=== PATIENT | female | born 1950 | race African-American/Black ===

== ENCOUNTER 2016-05-15 10:21 | Outpatient (CLI) | payer MEDICARE ==
[2016-05-15 10:40] LABS: Basophils % (Auto) 0.5 % (0.0-1.8); Eosinophils % (Auto) 4.2 % (0.0-4.3); Hemoglobin 9.3 gm/dl (10.1-14.3); Mean Corpuscular HGB Conc 32 % (30-34); Mean Corpuscular Hemoglobin 28 pg (28-32); Mean Corpuscular Volume 87 fl (79-97); Platelet Count 193 K/mm3 (140-440); Red Blood Count 3.35 M/mm3 (3.65-5.03); Red Cell Distribution Width 17.1 % (13.2-15.2); White Blood Count 6.8 K/mm3 (4.5-11.0)
[2016-05-15 11:20] LABS: Albumin 3.9 g/dL (3.9-5); BUN/Creatinine Ratio 14.87; Calcium 8.5 mg/dL (8.4-10.2); Phosphorous 4.4 mg/dL (2.5-4.5)
[2016-05-15 14:43] LABS: Potassium 6.2 mmol/L (3.6-5.0)
== END 2016-05-15 10:22 | disposition home or self-care (01) ==
LOC: LAB 10:21
PROVIDERS: ATTEND Internal Medicine Nephrology
DX: I12.9 Hypertensive chronic kidney disease with stage 1 through stage 4 chronic kidney disease, or unspecified chronic kidney disease (principal); N18.9 Chronic kidney disease, unspecified; E11.22 Type 2 diabetes mellitus with diabetic chronic kidney disease; J44.9 Chronic obstructive pulmonary disease, unspecified; R94.4 Abnormal results of kidney function studies; I67.89 Other cerebrovascular disease; I25.10 Atherosclerotic heart disease of native coronary artery without angina pectoris; D64.9 Anemia, unspecified
CPT/HCPCS: 36415; 80048; 82040; 82607; 82728; 83550; 83970; 84100; 85025

== ENCOUNTER 2016-05-15 17:15 | Emergency (ER) | payer MEDICARE ==
[2016-05-15 18:04] VITALS: BP 170/61
[2016-05-15 19:13] LABS: Eosinophils % (Auto) 4.4 % (0.0-4.3); Mean Corpuscular HGB Conc 31 % (30-34); Mean Corpuscular Hemoglobin 27 pg (28-32); Mean Corpuscular Volume 87 fl (79-97); Red Blood Count 3.68 M/mm3 (3.65-5.03)
[2016-05-15 19:31] LABS: BUN/Creatinine Ratio 16.57; Calcium 8.7 mg/dL (8.4-10.2); Chloride 106.8 mmol/L (98-107)
[2016-05-15 19:38] LABS: Potassium 6.6 mmol/L (3.6-5.0)
[2016-05-15 19:41] LABS: Platelet Count 197 K/mm3 (140-440)
--- NOTE | 2016-05-16 07:23 | ED Elopement Review ---
ED Pt Elopement review - Results review Lab results: Laboratory Tests 05/15/16 05/15/16 18:52 18:52 WBC 8.0 RBC 3.68 Hgb 10.0 L Hct 32.0 MCV 87 MCH 27 L MCHC 31 RDW 17.0 H Plt Count 197 Lymph % (Auto) 22.5 [place] % (Auto) 6.2 Eos % (Auto) 4.4 H Baso % (Auto) 1.0 Lymph # 1.8 [place] # 0.5 Eos # 0.4 Baso # 0.1 Seg Neutrophils % 65.9 Seg Neutrophils # 5.3 Sodium 136 L Potassium 6.6 H* Chloride 106.8 Carbon Dioxide 13 L Anion Gap 23 BUN 58 H Creatinine 3.5 H Estimated GFR 13 BUN/Creatinine Ratio 16.57 Glucose 132 H Calcium 8.7 - Call Back decision Pt Call Back Decision: Call pt to return to ED JAMIN (potassium of 6.6, patient to be called back immediately)
== END 2016-05-15 20:05 | disposition left against medical advice (07) ==
LOC: ED 17:15
DX: E87.5 Hyperkalemia (principal); Z53.21 Procedure and treatment not carried out due to patient leaving prior to being seen by health care provider
CPT/HCPCS: 36415; 80048; 85025; 93005; 93010

== ENCOUNTER 2016-05-16 10:26 | Inpatient (IN) | payer MEDICARE ==
--- NOTE | 2016-05-16 11:26 | Emergency Department Report ---
HPI - General Chief Complaint: Recheck/Abnormal Lab/Rx Time Seen by Provider: 05/16/16 10:56 - HPI HPI: This is a 65-year-old female who presents to the emergency department after she was called to come back due to abnormal labs found yesterday. The patient was here yesterday as she was told come in for evaluation of her potassium and renal function by her parquetry layer. The patient was here 2 different times but he eloped secondary to the long wait and time it took to get back to the emergency department. However the patient had blood drawn each time that resulted with a potassium of 6.2 and a level of 6.6 respectively. I had seen the patient's labs as part of a elopement review protocol and asked for the patient come back immediately for treatment and admission. She does not currently have any chest pain, shortness of breath, nausea, vomiting or fever. She does have some history of renal insufficiency but is not dialysis dependent. She also has a history of CVA without any significant deficits, insulin-dependent diabetes, hypertension and coronary artery disease with previous triple bypass. Her primary care doctor's Dr. Barrios. ED Past Medical Hx - Past Medical History Hx Hypertension: Yes Hx CVA: Yes Hx Diabetes: Yes Hx Renal Disease: Yes Additional medical history: CAD - Surgical History Hx Open Heart Surgery: Yes (TRIPLE BYPASS) - Social History Smoking Status: Never Smoker Substance Use Type: None - Medications Home Medications: Home Medications Medication Instructions Recorded Confirmed Last Taken Type Amlodipine Besylate [Norvasc] 10 mg PO BID 03/10/16 03/10/16 Unknown History AtorvaSTATin [Lipitor] 20 mg PO QDAY 03/10/16 03/10/16 Unknown History Carvedilol [Coreg] 12.5 mg PO BID 03/10/16 03/10/16 Unknown History ISOSORBIDE MONOnitrate [Imdur ER] 30 mg PO DAILY 03/10/16 03/10/16 Unknown History Insulin Glargine [Lantus VIAL] 50 units SQ QHS 03/10/16 03/10/16 Unknown History Insulin Regular, Human [HumuLIN R] 15 unit SQ ACHS 03/10/16 03/10/16 Unknown History Lisinopril [Zestril TAB] 40 mg PO BID 03/10/16 03/10/16 Unknown History clonazePAM [KlonoPIN] 2 mg PO QAM PRN 03/10/16 03/10/16 Unknown History clonazePAM [KlonoPIN] 4 mg PO QHS 03/10/16 03/10/16 Unknown History traZODone [Desyrel] 100 mg PO QHS 03/10/16 03/10/16 Unknown History Levofloxacin [Levaquin] 750 mg PO QDAY #7 tablet 03/16/16 Unknown Rx ED Review of Systems ROS: Stated complaint: RETURN TO ER PER CHARGE NURSE Other details as noted in HPI Comment: All other systems reviewed and negative Constitutional: denies: chills, fever Eyes: denies: eye pain, eye discharge, vision change ENT: denies: ear pain, throat pain Respiratory: denies: cough, shortness of breath, wheezing Cardiovascular: denies: chest pain, palpitations Gastrointestinal: denies: abdominal pain, nausea, diarrhea Genitourinary: denies: urgency, dysuria, discharge Musculoskeletal: denies: back pain, joint swelling, arthralgia Skin: denies: rash, lesions Neurological: denies: headache, weakness, paresthesias Physical Exam - Physical Exam Vital Signs: Vital Signs 05/16/16 10:41 Temperature 97.8 F Pulse Rate 60 Respiratory 19 Rate Blood Pressure 139/57 O2 Sat by Pulse 98 Oximetry Physical Exam: GENERAL: The patient is well-developed well-nourished. HEENT: Normocephalic. Atraumatic. Extraocular motions are intact. Patient has moist mucous membranes. Pupils equal reactive to light bilaterally. NECK: Supple. Trachea is midline. CHEST/LUNGS: Clear to auscultation. There is no respiratory distress noted. HEART/CARDIOVASCULAR: Regular. There is no tachycardia. There is no gallop rub or murmur. ABDOMEN: Abdomen is soft, nontender. Patient has normal bowel sounds. There is no abdominal distention. SKIN: There is no rash. There is no edema. There is no diaphoresis. NEURO: The patient is awake, alert, and oriented. The patient is cooperative. The patient has no focal neurologic deficits. The patient has normal speech. MUSCULOSKELETAL: There is no tenderness or deformity. There is no limitation range of motion. There is no evidence of acute injury. ED Course Vital Signs 05/16/16 10:41 Temperature 97.8 F Pulse Rate 60 Respiratory 19 Rate Blood Pressure 139/57 O2 Sat by Pulse 98 Oximetry - Consultations Consultation #1: I spoke with the nurse practitioner for the nephrology service of Dr. Harley. They agree with the plan for the hyperkalemia cocktail. Due to the patient's decreased bicarbonate level of 12, they will place orders for some bicarbonate administration and plan to see the patient later in the day. 05/16/16 13:06 ED Medical Decision Making - Lab Data Result diagrams: 05/16/16 11:17 05/16/16 11:17 - EKG Data -: EKG Interpreted by Me EKG shows normal: sinus rhythm, axis, intervals (prolonged VA interval indicating first-degree AV block), QRS complexes (LDH), ST-T waves (nonspecific ST-T changes) Rate: normal - EKG Data When compared to previous EKG there are: previous EKG unavailable Interpretation: other (sinus rhythm with first-degree AV block, LVH, nonspecific ST-T changes) - Medical Decision Making 65-year-old female presents to the emergency department after being called back and due to some previous labs being elevated with hyperkalemia and renal failure on elopements. Today the labs were rechecked and the potassium is up to 6.7. Patient was given the hyperkalemia cocktail. The nephrology service was contacted and admitted sodium bicarbonate and will see the patient later for consultation. Patient is been accepted for admission by the hospitalist and the patient's primary care doctor, Dr. Barrios. Critical Care Time: No Critical care attestation.: If time is entered above; I have spent that time in minutes in the direct care of this critically ill patient, excluding procedure time. ED Disposition Clinical Impression: Renal failure, Hyperkalemia, Hyperglycemia Disposition: OP ADMITTED IP TO THIS HOSP Is pt being admited?: Yes Condition: Stable Time of Disposition: 13:27
[2016-05-16 11:31] LABS: Basophils % (Auto) 0.5 % (0.0-1.8); Eosinophils % (Auto) 3.4 % (0.0-4.3); Hematocrit 28.5 % (30.3-42.9); Mean Corpuscular HGB Conc 32 % (30-34); Mean Corpuscular Hemoglobin 27 pg (28-32); Mean Corpuscular Volume 87 fl (79-97); Platelet Count 170 K/mm3 (140-440); Red Blood Count 3.29 M/mm3 (3.65-5.03); Red Cell Distribution Width 16.8 % (13.2-15.2); White Blood Count 6.8 K/mm3 (4.5-11.0)
[2016-05-16 11:46] LABS: BUN/Creatinine Ratio 15.4; Calcium 8.2 mg/dL (8.4-10.2); Chloride 106.2 mmol/L (98-107)
[2016-05-16 11:48] LABS: Potassium 6.7 mmol/L (3.6-5.0)
[2016-05-16] MEDS ORDERED: PROVENTIL IH ONE (11:50)
[2016-05-16] MEDS ORDERED: KIONEX PO ONE (11:50)
[2016-05-16] MEDS ORDERED: CALCIUM CHLORIDE 1,000 MG in NACL 0.9% 100 ML IV ONE (11:50)
[2016-05-16] MEDS ORDERED: D50W (25GM) IV ONE (11:50)
--- NOTE | 2016-05-16 11:57 | Admit Criteria Form ---
Admission Criteria Documentation: HYPONATREMIA; HYPERNATREMIA; HYPOKALEMIA; HYPERKALEMIA; HYPOCALCEMIA; HYPERCALCEMIA Clinical Indications for Inpatient Care (Place 'X' for any and all applicable criteria): Ongoing inpatient care may be indicated for ANY ONE of the following [G](1)(2)(3 )(5): [X]I. Hyponatremia with ANY ONE of the following: [ ]a) Sodium less than 130 mEq/L (mmol/L) (new) (6)(22) [X]b) Sodium less than 135 mEq/L (mmol/L) with ANY ONE of the following: [ ]i) Severe medical etiology requiring inpatient management (eg, heart failure, hypovolemia) [ ]ii) Altered mental status [ ]iii) Seizures [ ]II. Hypernatremia with ANY ONE of the following: [ ]a) Sodium greater than 155 mEq/L (mmol/L) [ ]b) Sodium greater than 150 mEq/L (mmol/L) with ANY ONE of the following: [ ] i) Altered mental status [ ]ii) Seizures [ ]iii) Severe medical etiology (eg, hypovolemia, diabetes insipidus) [ ]iv) Severe weakness [ ]v) Severe medical etiology (eg, hemolysis, infection, drug overdose) [ ]III. Hypokalemia with ANY ONE of the following: [ ]a) Potassium less than 2.5 mEq/L (mmol/L) despite outpatient and emergency treatment [ ]b) Potassium less than 3.0 mEq/L (mmol/L) with ANY ONE of the following: [ ]i) Weakness [ ]ii) Cardiac abnormality (eg, arrhythmia, conduction disturbance) [ ]iii) Cardiac ischemia [ ]iv) Ileus [ ]v) Ongoing medical cause requiring inpatient management. ( e.g., acute renal wasting, SIADH) [ ]vi) Other severe symptoms [X] IV. Hyperkalemia with ANY ONE of the following: [X]a) Potassium greater than 6.5 mEq/L (mmol/L) [X]b) Potassium greater than 5 mEq/L (mmol/L) with ANY ONE of the following: [ ]i) Severe ECG findings [H] [X]ii) Acute worsening of renal failure (creatinine greater than 2.5 mg/dL (221 micromoles/L) or significant elevation for age and size) [ ] V. Hypocalcemia with ANY ONE of the following: [ ]a) Calcium less than 7 mg/dL (1.75 mmol/L) despite outpatient and emergency treatment(19) [ ]b) Calcium less than 8 mg/dL (2 mmol/L) with significant symptoms or findings; examples include: [ ]i) Cardiac abnormality (eg, arrhythmia or conduction disturbance) [ ]ii) Altered mental status [ ]iii) Seizures [ ]iv) Breathing difficulty [ ]v) Muscle spasms [ ]. Hypercalcemia with ANY ONE of the following: [ ]a) Calcium greater than 14 mg/dL (3.5 mmol/L) [ ]b) Calcium greater than 12 mg/dL (3 mmol/L) with ANY ONE of the following: [ ]i) Significant dehydration or hypovolemia as indicated by ANY ONE of the following(2): [ ]1. Clinically significant dehydration as indicated by ANY ONE of the following: [ ]A. Acute loss of weight from baseline (5% of body weight in adults, 9% in pediatric patients) [ ]B. Hemodynamic instability [ ]C. Acute renal failure [ ]D. Serum sodium greater than 150 mEq/L (mmol/L) [ ]2) Dehydration that is persistent indicated by ALL of the following: [ ]A. Oral rehydration therapy not tolerated or insufficient to adequately correct dehydration [ ]B. Appropriate intravenous treatment (eg, fluids ) does not readily correct dehydration ie, after 12 to 24 hours of treatment) [ ]ii) Significant symptoms or findings; examples include: [ ]1) Altered mental status [ ]2) Cardiac abnormality (eg, arrhythmia, conduction disturbance) [ ]3) Cardiac abnormality (eg, arrhythmia, conduction disturbance) The original [facility] content created by [employer] has been revised. The portions of the content which have been revised are identified through the use of italic text or in bold, and [facility] has neither reviewed nor approved the modified material. All other unmodified content is copyright [facility] Please see references footnoted in the original [facility] edition 2016 Admission Criteria Met: Yes
[2016-05-16] MEDS ORDERED: SODIUM BICARBONATE IV ONE ×3 (13:04→14:00)
[2016-05-16] MEDS ORDERED: SODIUM BICARBONATE 150 MEQ in D5W 1,000 ML IV ONE (14:00)
[2016-05-16] MEDS ORDERED: HEPARIN ONE (15:36)
[2016-05-16] MEDS: HEPARIN SUB-Q SCH ×2 (15:45→21:44)
[2016-05-16] MEDS ORDERED: ZOFRAN ONE (15:45)
[2016-05-16] MEDS: ZOFRAN IV PRN (16:05)
--- NOTE | 2016-05-16 18:07 | Consultation ---
History of Present Illness - Reason for Consult Consult date: 05/16/16 - History of Present Illness Pt was seen and examined in ER.Discussed with pt's sons-translators for pt. No dialysis per discussion, only medical treatment, no artifical life support or life prolonging treatments. Consult dictated Medications and Allergies Allergies Allergy/AdvReac Type Severity Reaction Status Date / Time acetaminophen [From Tylenol] Allergy Vomiting Verified 05/15/16 18:00 Home Medications Medication Instructions Recorded Confirmed Last Taken Type Amlodipine Besylate [Norvasc] 10 mg PO BID 03/10/16 03/10/16 Unknown History AtorvaSTATin [Lipitor] 20 mg PO QDAY 03/10/16 03/10/16 Unknown History Carvedilol [Coreg] 12.5 mg PO BID 03/10/16 03/10/16 Unknown History ISOSORBIDE MONOnitrate [Imdur ER] 30 mg PO DAILY 03/10/16 03/10/16 Unknown History Insulin Glargine [Lantus VIAL] 50 units SQ QHS 03/10/16 03/10/16 Unknown History Insulin Regular, Human [HumuLIN R] 15 unit SQ ACHS 03/10/16 03/10/16 Unknown History Lisinopril [Zestril TAB] 40 mg PO BID 03/10/16 03/10/16 Unknown History clonazePAM [KlonoPIN] 2 mg PO QAM PRN 03/10/16 03/10/16 Unknown History clonazePAM [KlonoPIN] 4 mg PO QHS 03/10/16 03/10/16 Unknown History traZODone [Desyrel] 100 mg PO QHS 03/10/16 03/10/16 Unknown History Levofloxacin [Levaquin] 750 mg PO QDAY #7 tablet 03/16/16 Unknown Rx Active Meds: Active Medications Heparin Sodium (Porcine) (Heparin) 5,000 unit SUB-Q Q8HR BASSEM Last Admin: 05/16/16 15:45 Dose: 5,000 unit Sodium Bicarbonate 150 meq/ (Dextrose) 1,150 mls @ 100 mls/hr IV ONCE.ED ONE Stop: 05/17/16 01:29 Last Admin: 05/16/16 16:07 Dose: 100 mls/hr Ondansetron HCl (Zofran) 4 mg IV Q3H PRN PRN Reason: Nausea Last Admin: 05/16/16 16:05 Dose: 4 mg Exam - Constitutional Vitals: Temp Pulse Resp BP Pulse Ox 97.8 F 65 10 L 156/58 93 05/16/16 10:41 05/16/16 14:00 05/16/16 16:09 05/16/16 16:09 05/16/16 16:09 Results - Labs CBC & Chem 7: 05/16/16 11:17 05/16/16 11:17
[2016-05-16 21:51] LABS: BUN/Creatinine Ratio 14.28; Calcium 8.7 mg/dL (8.4-10.2); Chloride 106.5 mmol/L (98-107); Potassium 5.3 mmol/L (3.6-5.0)
--- NOTE | 2016-05-16 23:06 | History and Physical Report ---
History of Present Illness Date of examination: 05/16/16 Date of admission: 05/16/16 13:27 Chief complaint: hyperkalemia History of present illness: Full H and P dictated. Pt see note in report section Past History Past Medical History: diabetes, hypertension, stroke Past Surgical History: CABG Social history: denies: smoking, alcohol abuse, prescription drug abuse Family history: denies: stroke Medications and Allergies Allergies Allergy/AdvReac Type Severity Reaction Status Date / Time acetaminophen [From Tylenol] Allergy Vomiting Verified 05/15/16 18:00 Home Medications Medication Instructions Recorded Confirmed Last Taken Type Amlodipine Besylate [Norvasc] 10 mg PO BID 03/10/16 03/10/16 Unknown History AtorvaSTATin [Lipitor] 20 mg PO QDAY 03/10/16 03/10/16 Unknown History Carvedilol [Coreg] 12.5 mg PO BID 03/10/16 03/10/16 Unknown History ISOSORBIDE MONOnitrate [Imdur ER] 30 mg PO DAILY 03/10/16 03/10/16 Unknown History Insulin Glargine [Lantus VIAL] 50 units SQ QHS 03/10/16 03/10/16 Unknown History Insulin Regular, Human [HumuLIN R] 15 unit SQ ACHS 03/10/16 03/10/16 Unknown History Lisinopril [Zestril TAB] 40 mg PO BID 03/10/16 03/10/16 Unknown History clonazePAM [KlonoPIN] 2 mg PO QAM PRN 03/10/16 03/10/16 Unknown History clonazePAM [KlonoPIN] 4 mg PO QHS 03/10/16 03/10/16 Unknown History traZODone [Desyrel] 100 mg PO QHS 03/10/16 03/10/16 Unknown History Levofloxacin [Levaquin] 750 mg PO QDAY #7 tablet 03/16/16 Unknown Rx Active Meds: Active Medications Heparin Sodium (Porcine) (Heparin) 5,000 unit SUB-Q Q8HR BASSEM Last Admin: 05/16/16 21:44 Dose: 5,000 unit Sodium Bicarbonate 150 meq/ (Dextrose) 1,150 mls @ 100 mls/hr IV ONCE.ED ONE Stop: 05/17/16 01:29 Last Admin: 05/16/16 16:07 Dose: 100 mls/hr Ondansetron HCl (Zofran) 4 mg IV Q3H PRN PRN Reason: Nausea Last Admin: 05/16/16 16:05 Dose: 4 mg Exam - Constitutional Vitals: Temp Pulse Resp BP Pulse Ox 98.3 F 88 18 185/79 98 05/16/16 21:15 05/16/16 21:15 05/16/16 21:15 05/16/16 21:15 05/16/16 21:15 General appearance: Present: no acute distress, well-nourished - EENT Eyes: Present: PERRL ENT: hearing intact, clear oral mucosa - Neck Neck: Present: supple, normal ROM - Respiratory Respiratory effort: normal Respiratory: bilateral: CTA - Cardiovascular Heart Sounds: Present: S1 & S2. Absent: rub, click - Extremities Extremities: pulses symmetrical, No edema Peripheral Pulses: within normal limits - Abdominal General gastrointestinal: Present: soft, non-tender, non-distended, normal bowel sounds - Integumentary Integumentary: Present: clear, warm, dry - Musculoskeletal Musculoskeletal: gait normal, strength equal bilaterally - Psychiatric Psychiatric: appropriate mood/affect, intact judgment & insight - Neurologic Neurologic: CNII-XII intact, other (left hemiparesis) Results - Labs CBC & Chem 7: 05/16/16 11:17 05/16/16 20:37 Labs: Abnormal lab results 05/16/16 05/16/16 Range/Units 20:37 20:44 Potassium 5.3 H D (3.6-5.0) mmol/L Carbon Dioxide 18 L (22-30) mmol/L BUN 50 H (7-17) mg/dL Creatinine 3.5 H (0.7-1.2) mg/dL Glucose 188 H (65-100) mg/dL POC Glucose 223 H (70-105) Assessment and Plan Assessment and plan: 1. Hyperkalemia: D50 with iv insulin and Ca gluconate 2. T2DM: SSI, B renaldo insulin and Consistent CHO diet 3. CKD: Stage 4. Contl BP an avoid nephrotoxic drugNephrology following 4. Anemia of Chronic disease: Michael h/h 5. Diabetic nephropathy: optimize mitigating risk factors
[2016-05-16] MEDS ORDERED: DESYREL PO SCH (23:22)
[2016-05-16] MEDS: LEVEMIR SUB-Q SCH (23:43)
[2016-05-16] MEDS: RESTORIL PO SCH (23:45)
[2016-05-16] MEDS: DESYREL PO SCH (23:53)
--- NOTE | 2016-05-17 01:51 | Consultation ---
REASON FOR CONSULTATION: Renal failure, hyperkalemia, metabolic acidosis. HISTORY OF PRESENT ILLNESS: This 65-year-old [place] female with history of diabetes, hypertension, CVA, coronary artery disease, status post CABG was brought to the Emergency Room for having abnormal labs done yesterday for office followup. The patient is followed by Dr. Jaime, principal database developer for chronic kidney disease. In the ER, the patient's labs revealed BUN of 57, creatinine of 3.7, potassium of 6.7, CO2 of 12, glucose 385, sodium 133. Hemoglobin 9.0. The patient received medical treatment for hyperkalemia in the emergency room and she was placed on bicarbonate drip. The patient does not speak Cambodian. The patient's both sons are at bedside, who are translated for the patient. In 2007, the patient had triple bypass surgery. At that time, she had a stroke and second stroke in 2008. History of diabetes since 2001. The patient has left side weakness from the stroke, has not been ambulatory. For the past few days, she was not eating or drinking well and not urinating much. The patient also is reported to be restless and sometimes talks out of her head and asks her to drive her around at night time. She cannot stay still. PAST MEDICAL HISTORY: As mentioned above, status post open heart surgery with triple bypass in 2007, history of stroke twice in 2007 and 2008, type 2 diabetes, hypertension, chronic kidney disease. PERSONAL HISTORY: No history of smoking, alcohol, or drug abuse. FAMILY HISTORY: No family history of kidney failure. ALLERGIES: Acetaminophen. HOME MEDICATIONS: Amlodipine 10 mg twice a day, atorvastatin 20 mg a day, carvedilol 12.5 mg twice a day, isosorbide 30 mg once a day, insulin, lisinopril 40 mg, trazodone 100 mg once a day, clonidine 4 mg once a day. REVIEW OF SYSTEMS: The patient does not speak Cambodian, family members are the translators. The patient denies chest pain or shortness of breath, nausea or vomiting at present time. Denies fever or chills. Denies cold, cough, or sore throat. Denies abdomen pain. Urine output is not much. Denies swelling of the legs. The patient has been restless and cannot stay still. Other review of systems reviewed and negative. PHYSICAL EXAMINATION: GENERAL: The patient is alert, oriented to place and person, not in acute distress. VITAL SIGNS: Blood pressure 159/60, pulse 80, afebrile. HEENT: Head is normocephalic. Eyes: Pupils reactive. Conjunctivae pale. Oral mucosa: Tongue and lips are dry. NECK: No JVD. No thyroid enlargement. No cervical lymph nodes palpable. LUNGS: Clear. HEART: S1, S2 regular. No pericardial rub. ABDOMEN: Soft, bowel sounds present, nontender. No masses palpable. EXTREMITIES: No significant edema. LABORATORY DATA: Sodium 133, potassium 6.7, chloride 106, CO2 12, BUN 57, creatinine 3.7, glucose 385, calcium 8.2. WBC 6.8, hemoglobin 9.0, hematocrit 28.5, platelets 170. ASSESSMENT AND PLAN: 1. Hyperkalemia. 2. Metabolic acidosis. 3. Diabetes with hyperglycemia. 4. Acute on chronic kidney disease. 5. Anemia in chronic kidney disease. 6. Coronary artery disease, status post coronary artery bypass graft. 7. History of cerebrovascular accident. 8. Restless legs syndrome. Check on urine electrolytes and follow up on the electrolytes. The patient is noted to have hyperglycemia, check ketones, and the patient may have possible diabetic ketoacidosis. Medical treatment for hyperkalemia is ordered. Discussed in detail with the patient and the patient's family, both sons who speak good Cambodian, about the treatment plan. Family does not want to pursue dialysis and they request not to do artificial life support or life prolonging measures. Family was provided with a DNR forms. Check renal ultrasound to rule out urinary retention. Check urine electrolytes. Hyperglycemia treatment per her primary care doctor, Dr. Barrios. Stop CHRISTOPHER inhibitors. Thank you for the consultation. JOB# [id number] K/NTS
[2016-05-17] MEDS: HEPARIN SUB-Q SCH ×3 (05:15→21:34)
--- NOTE | 2016-05-17 06:42 | History and Physical Report ---
CHIEF COMPLAINT: Hyperkalemia. HISTORY OF PRESENT ILLNESS: The patient is a 65-year-old lady who has a history of hypertension, cerebrovascular accident, diabetes mellitus, coronary artery disease, status post triple bypass, sees her synthetic filament spinner, Dr. Jaime on a regular basis. She was due for another visit to the synthetic filament spinner because of her chronic kidney disease and she was advised by the synthetic filament spinner to obtain a chemistry lab studies. The lab report showed a potassium level of 6.7. The patient was therefore advised by the synthetic filament spinner to go to the Emergency Department for admission. I was called as the primary care physician of the patient who has been taking care of this patient in my office. Blood sugar was found to be elevated at 382. The patient denies any fever. No chest pain, no palpitations, no orthopnea, or paroxysmal nocturnal dyspnea. Denies any syncope. PAST MEDICAL HISTORY: Remarkable for hypertension, cerebrovascular accident, diabetes mellitus, diabetic nephropathy, and coronary artery disease, status post bypass. PAST SURGICAL HISTORY: Triple bypass. SOCIAL HISTORY: Denies any tobacco use. No alcohol use. Lives with her who is her primary caregiver. FAMILY HISTORY: Unremarkable for any chronic kidney disease. REVIEW OF SYSTEMS: HEAD: Atraumatic. EYES: No blurred vision. No discharge from the eyes. NOSE: No rhinorrhea, no epistaxis. MOUTH: Moist mucous membrane. NECK: No enlarged glands. HEART: Regular rate and rhythm, S1, S2. No rubs, murmurs, or gallop. LUNGS: Clear to auscultation bilaterally. No wheezing, no rales, no rhonchi. ABDOMEN: Soft, nontender. Bowel sounds are present. EXTREMITIES: No edema, no cyanosis, no clubbing. NEUROLOGIC: The patient is alert and oriented x 2. Has slurred speech. Has left-sided weakness from stroke many years ago. SKIN: No rashes, no hyperpigmented spots. ENDOCRINE: No heat or cold intolerance. Denies any polyuria, polydipsia, or polyphagia. MUSCULOSKELETAL: Has weakness on the left side. HEMATOLOGICAL: No subcutaneous hemorrhages or easy bruising. IMMUNOLOGICAL: No multiple septic spots on the skin. MEDICATIONS: Include amlodipine 10 mg daily, atorvastatin 20 mg daily, carvedilol 12.5 mg b.i.d., isosorbide 30 mg daily, Lantus insulin, Humalog units , lisinopril 40 mg, clonazepam 2 mg, and trazodone 100 mg at bedtime, 150 mg daily. ALLERGIES: No known drug allergies. PHYSICAL EXAMINATION: VITAL SIGNS: On admission, her blood pressure was 185/79, pulse was 88, respirations were 18, temperature was 98.3. GENERAL: The patient is lying quietly in bed in no obvious distress. HEENT: Normocephalic, atraumatic. NECK: Supple, no thyromegaly, no bruit. HEART: Regular rate and rhythm, S1, S2. No rubs, murmurs, or gallops. LUNGS: Clear to auscultation bilaterally. No wheezing, rales, or rhonchi. ABDOMEN: Soft, nontender. Bowel sounds are present. EXTREMITIES: No edema, no cyanosis, no clubbing. NEUROLOGICAL: The patient has a left-sided weakness with strength in the upper and lower extremity 3-4/5. MUSCULOSKELETAL: No joint pain and no joint. HEMATOLOGICAL: No subcutaneous hemorrhages, no easy bruising. IMMUNOLOGICAL: No multiple septic spots. LYMPHATIC: No generalized lymphadenopathy. LABORATORY DATA: WBC was 6.8, hemoglobin was 9.2, hematocrit was 28.5, platelet was 170. Sodium was 140, potassium was 5.3, chloride is 106.5, carbon dioxide 18, anion gap is, BUN is 50, creatinine was 3.5. GFR estimated was 13. Glucose was 385, but improved to 188 with sliding scale. Magnesium was 1.8, calcium was 8.2. Ketones 1.2. ASSESSMENT: 1. Hyperkalemia. 2. Diabetes mellitus, uncontrolled. 3. Anemia of chronic disease. 4. Coronary artery disease, status post coronary artery bypass graft. PLAN: We will admit the patient to tele. IV hydration. Ten units of insulin IV with D50 one ampule and calcium gluconate to stabilize the membranes. Would repeat her potassium level thereafter. Kayexalate. Glycemic control will be done with sliding scale insulin. Basal insulin with Glargine units at bedtime. continue on aspirin, which is a home medication. Nephrology consult obtained for chronic kidney disease. JOB# [id number] OO/NTS MTDD
[2016-05-17 08:18] LABS: Albumin 3.8 g/dL (3.9-5); Albumin/Globulin Ratio 1.3 %; BUN/Creatinine Ratio 14.83; Bilirubin,Total 0.3 mg/dL (0.1-1.2); Calcium 8.2 mg/dL (8.4-10.2); Chloride 100.4 mmol/L (98-107); Potassium 4.5 mmol/L (3.6-5.0); Total Protein 6.7 g/dL (6.3-8.2)
--- NOTE | 2016-05-17 09:04 | Ultrasound Report ---
ULTRASOUND RENAL BILATERAL: HISTORY: Renal failure. TECHNIQUE: Transabdominal ultrasound. FINDINGS: Compared to 03/11/16. The right kidney measures 8.5 x 4.4 x 4.6 cm. The right kidney is echogenic with scattered punctate renal stones. No cystic disease, mass or hydronephrosis. The left kidney measures 8.9 x 5.1 x 5.1 cm. Scattered echogenic foci are also identified in the left kidney consistent with nonobstructing stones. No cystic disease, mass or hydronephrosis. The bladder is empty but grossly unremarkable. Small right pleural effusion is noted. IMPRESSION: Slightly atrophic and echogenic kidneys consistent with chronic renal parenchymal disease. Scattered nonobstructing calyceal stones or renovascular calcifications are suspected. No significant change since 03/11/16. Small right pleural effusion.
--- NOTE | 2016-05-17 10:03 | Progress Note ---
Assessment and Plan - Patient Problems (1) Hyperkalemia Current Visit: Yes Status: Acute Plan to address problem: K- better- monitor off CHRISTOPHER-I (2) Acute kidney injury superimposed on CKD Current Visit: Yes Status: Acute Plan to address problem: may be prerenal with diabetic nephropathy /hypertensive renovascular disease- improving (3) Metabolic acidosis Current Visit: Yes Status: Acute Plan to address problem: better- may switch to oral bicarb supplements (4) Diabetes Current Visit: Yes Status: Acute Qualifiers: Diabetes mellitus type: type 2 Diabetes mellitus complication status: D Diabetes mellitus complication detail: D Diabetic retinopathy severity: D Proliferative retinopathy type: P Diabetes mellitus macular edema: D Diabetes mellitus skilled nursing insulin use: D Laterality: L Chronic kidney disease stage: C (5) Hyperglycemia Current Visit: Yes Status: Acute (6) Hx of CABG Current Visit: No Status: Acute (7) Anemia in CKD (chronic kidney disease) Current Visit: Yes Status: Acute Subjective Date of service: 05/17/16 Interval history: pt is alert, not in distress, no CP or SOB Objective - Vital Signs Vital signs: Vital Signs - 12hr 05/16/16 05/17/16 05/17/16 22:56 01:31 05:25 Temperature 97.9 F 97.9 F Pulse Rate 97 H Pulse Rate [ 92 H 99 H Right] Respiratory 18 18 Rate Blood Pressure 157/69 147/68 [Right Arm] O2 Sat by Pulse 92 94 Oximetry 05/17/16 08:07 Temperature 98.6 F Pulse Rate Pulse Rate [ 95 H Right] Respiratory 18 Rate Blood Pressure 143/66 [Right Arm] O2 Sat by Pulse 88 Oximetry - General Appearance General appearance: well-developed EENT: mucous membranes moist Neck: no JVD Respiratory: Present: Clear to Ascultation Cardiology: regular Gastrointestinal: normoactive bowel sounds Neurologic: alert and oriented x3 Psychiatric: mood/affect appropriate, cooperative - Lab 05/16/16 11:17 05/17/16 06:39 Most recent lab results Calcium 8.2 mg/dL (8.4-10.2) L 05/17/16 06:39 Magnesium 1.8 mg/dL (1.7-2.3) 05/16/16 11:17
[2016-05-17] MEDS: DESYREL PO SCH (21:34)
[2016-05-17] MEDS: SODIUM BICARBONATE PO SCH (21:34)
[2016-05-17] MEDS: ZOFRAN IV PRN (21:34)
[2016-05-17] MEDS: RESTORIL PO SCH (21:34)
[2016-05-17] MEDS: LEVEMIR SUB-Q SCH (21:37)
--- NOTE | 2016-05-17 22:54 | Progress Note ---
Assessment and Plan Assessment and plan: 1. Hyperkalemia: D50 with iv insulin and Ca gluconate improving 2. T2DM: SSI, B renaldo insulin and Consistent CHO diet 3. CKD: Stage 4. Contl BP an avoid nephrotoxic drugNephrology following 4. Anemia of Chronic disease: Michael h/h 5. Diabetic nephropathy: optimize mitigating risk factors Subjective Date of service: 05/17/16 Principal diagnosis: no new com;palnt Interval history: K level improving Objective - Constitutional Vitals: Vital Signs - 12hr 05/17/16 05/17/16 05/17/16 14:00 16:02 20:00 Temperature 98.3 F 98.1 F Pulse Rate 98 H Pulse Rate [ 92 H 81 Right] Respiratory 18 18 Rate Blood Pressure 160/68 144/65 [Right Arm] O2 Sat by Pulse 96 97 Oximetry General appearance: Present: no acute distress - EENT Eyes: PERRL, scleral icterus - Neck Neck: supple - Respiratory Respiratory: bilateral: CTA - Cardiovascular Rhythm: regular Extremities: no ischemia, No edema - Gastrointestinal General gastrointestinal: Present: soft, non-tender, non-distended, normal bowel sounds - Integumentary Integumentary: clear, warm, erythema - Musculoskeletal Musculoskeletal: strength equal bilaterally, right sided weakness - Neurologic Neurologic: CNII-XII intact, gait normal (left hemiparesis) - Labs CBC & Chem 7: 05/16/16 11:17 05/17/16 06:39 Labs: Abnormal lab results 05/17/16 05/17/16 Range/Units 06:39 20:45 BUN 46 H (7-17) mg/dL Creatinine 3.1 H (0.7-1.2) mg/dL Glucose 260 H (65-100) mg/dL POC Glucose 282 H (70-105) Calcium 8.2 L (8.4-10.2) mg/dL Alkaline Phosphatase 139 H (35-129) units/L Albumin 3.8 L (3.9-5) g/dL
[2016-05-18] MEDS: HEPARIN SUB-Q SCH (06:46)
[2016-05-18 07:38] VITALS: BP 137/74
--- NOTE | 2016-05-18 09:02 | Query- Renal Failure ---
Deafran Humphrey_RadhaOBKULWINDERKWE Date:_05/18/2016 Tray Drier Operator/CDS:Delmis Barber Phone#: Exercise your independent professional judgment when responding to query. Questions asked do not imply a particular answer is desired or expected. We greatly appreciate your clarification on this issue. Clinical Documentation States: The patient is a [id number] Female who was admitted due to Hyperkalemia, Hyperglycemia, Anemia. "Acute kidney injury superimposed on CKD" (Dr. Lainez, [facility] in Consult on 05/17/2016 ). 05/16 Creatinine 3.7 mg/dl 3.1 mg/dl BUN 57 mg/dl 46 mg/dl GFR 12 15 Please clarify if you mean: Acute Renal Failure with or due to: [ ] Tubular Necrosis [ ] Medullary Necrosis [ ] Vasomotor Nephropathy [ ] Shock Kidney [ ] Tubular Nephrosis [ ] Renal Tubular Stasis [ ] Cortical Necrosis [ ] Acute Renal Failure (unspecified) [ ] Lower Tubular Nephrosis [ ] Other: [ ] Not Applicable Present on Admission: [ ] Yes (Y) [ ] Clinically undeterminable (W) [ ] No (N) Please also document response in your Progress Notes and/or Discharge Summary and indicate if the condition was present on admission. MTDD
--- NOTE | 2016-05-18 09:03 | Progress Note ---
Assessment and Plan - Patient Problems (1) Hyperkalemia Current Visit: Yes Status: Acute Plan to address problem: K- better- hold off CHRISTOPHER-I. Spoke with pt and son (2) Acute kidney injury superimposed on CKD Current Visit: Yes Status: Acute Plan to address problem: needs follow up in the office. Discussed with . Ok for discharge from renal point (3) Metabolic acidosis Current Visit: Yes Status: Acute Plan to address problem: maintain on bicarb supplements (4) Diabetes Current Visit: Yes Status: Chronic Qualifiers: Diabetes mellitus type: type 2 Diabetes mellitus complication status: D Diabetes mellitus complication detail: D Diabetic retinopathy severity: D Proliferative retinopathy type: P Diabetes mellitus macular edema: D Diabetes mellitus care home insulin use: D Laterality: L Chronic kidney disease stage: C Plan to address problem: needs better control-treatment per PCP (5) Hyperglycemia Current Visit: Yes Status: Acute (6) Hx of CABG Current Visit: No Status: Acute (7) Anemia in CKD (chronic kidney disease) Current Visit: Yes Status: Chronic Subjective Date of service: 05/18/16 Principal diagnosis: no new com;palnt Interval history: pt is alert, oriented, denies CP or SOB Objective - Vital Signs Vital signs: Vital Signs - 12hr 05/17/16 05/17/16 05/18/16 22:00 23:04 00:00 Temperature 98.2 F Pulse Rate 83 Pulse Rate [ 72 Right] Respiratory 18 18 Rate Blood Pressure 148/64 [Right Arm] O2 Sat by Pulse 96 97 Oximetry 05/18/16 05/18/16 05/18/16 04:00 07:00 07:37 Temperature 97.8 F 97.9 F Pulse Rate 66 Pulse Rate [ 75 74 Right] Respiratory 18 20 Rate Blood Pressure 144/63 137/74 [Right Arm] O2 Sat by Pulse 99 95 Oximetry 05/18/16 08:16 Temperature Pulse Rate 70 Pulse Rate [ Right] Respiratory Rate Blood Pressure [Right Arm] O2 Sat by Pulse Oximetry - General Appearance General appearance: well-developed EENT: mucous membranes moist Neck: no JVD Respiratory: Present: Clear to Ascultation Cardiology: regular Gastrointestinal: normoactive bowel sounds Neurologic: alert and oriented x3 Musculoskeletal: other (no edema) Psychiatric: mood/affect appropriate, cooperative - Lab 05/16/16 11:17 05/17/16 06:39 Most recent lab results Calcium 8.2 mg/dL (8.4-10.2) L 05/17/16 06:39 Magnesium 1.8 mg/dL (1.7-2.3) 05/16/16 11:17
--- NOTE | 2016-05-18 09:14 | Discharge Summary ---
Providers - Providers Date of Admission: 05/16/16 13:27 Date of discharge: 05/18/16 Attending physician: KRYSTIN GAVIN 05/16/16 18:01 Consult to Physician [CONS] Routine Consulting Provider: ELI LONDONO Reason For Exam: Renal failure Place consult to:: Dr. Londono Notified:: yes Was contact made?: Yes If yes, spoke with:: Dr. Londono Time called:: 18:01 Comment:: notified in person Primary care physician: VALVE TECHNICIAN Hospitalization Condition: Stable Pertinent studies: Renal ultrasound Procedures: None Hospital course: Patient is 65-year-old lady who has a history of chronic kidney disease, diabetes mellitus, stroke with left hemiparesis, had a lab draw as ordered by his investor relations manager. Potassium was high, 6.7. Patient blood sugar was also found to be in the 300s. Admission was therefore requested. Patient was given the Kayexalate with insulin. Potassium level decreased to 4.5 today. Patient is therefore being discharged to follow primary care physician as well as investor relations manager. Had elevated blood sugar in the 300s that was also controlled with sliding scale insulin and consistent carbohydrate diet. Disposition: DISCHARGED TO HOME OR SELFCARE Core Measure Documentation - Palliative Care Palliative Care/ Comfort Measures: Not Applicable - Core Measures Any of the following diagnoses?: none Exam - Constitutional Vitals: Temp Pulse Resp BP Pulse Ox 97.9 F 70 20 137/74 95 05/18/16 07:37 05/18/16 08:16 05/18/16 07:37 05/18/16 07:37 05/18/16 07:37 General appearance: Present: no acute distress, well-nourished - EENT Eyes: Present: PERRL ENT: hearing intact, clear oral mucosa - Neck Neck: Present: supple, normal ROM - Respiratory Respiratory effort: normal Respiratory: bilateral: CTA - Cardiovascular Heart Sounds: Present: S1 & S2. Absent: rub, click - Extremities Extremities: pulses symmetrical, No edema Peripheral Pulses: within normal limits - Abdominal General gastrointestinal: Present: soft, non-tender, non-distended, normal bowel sounds - Integumentary Integumentary: Present: clear, warm, dry - Musculoskeletal Musculoskeletal: gait normal, strength equal bilaterally - Psychiatric Psychiatric: appropriate mood/affect, intact judgment & insight - Neurologic Neurologic: CNII-XII intact, moves all extremities Plan Follow up with: PRIMARY CARE,MD [Primary Care Provider] - 3-5 Days Prescriptions: HYDROcodone/APAP 5-325 [[place] 5-325 mg TAB] 1 each PO Q6HR PRN #60 tablet PRN Reason: Pain Insulin Detemir [Levemir] 30 units SUB-Q QHS #300 units Levofloxacin [Levaquin TAB] 750 mg PO QDAY #7 tablet Sodium Bicarbonate 650 mg PO BID #60 tablet Temazepam [Restoril] 30 mg PO QHS #30 capsule traZODone [Desyrel] 100 mg PO QHS #30 tablet
[2016-05-18] MEDS: SODIUM BICARBONATE PO SCH (10:38)
== END 2016-05-18 11:15 | disposition home or self-care (01) | DRG 637 ==
LOC: ED 10:26 → MERGE 10:26 → 4A 13:27
PROVIDERS: ADMIT Family Medicine; ATTEND Family Medicine
DX: E11.65 Type 2 diabetes mellitus with hyperglycemia (principal); N17.0 Acute kidney failure with tubular necrosis; E87.2 Acidosis; G81.94 Hemiplegia, unspecified affecting left nondominant side; N18.4 Chronic kidney disease, stage 4 (severe); I25.10 Atherosclerotic heart disease of native coronary artery without angina pectoris; I12.9 Hypertensive chronic kidney disease with stage 1 through stage 4 chronic kidney disease, or unspecified chronic kidney disease; G25.81 Restless legs syndrome; E87.5 Hyperkalemia; E11.21 Type 2 diabetes mellitus with diabetic nephropathy; D63.8 Anemia in other chronic diseases classified elsewhere; Z86.73 Personal history of transient ischemic attack (TIA), and cerebral infarction without residual deficits; Z95.1 Presence of aortocoronary bypass graft; Z88.6 Allergy status to analgesic agent; Z79.4 Long term (current) use of insulin
CPT/HCPCS: 36415; 76770; 80048; 80053; 82010; 82040; 82607; 82728; 82962; 83550; 83735; 83970; 84100; 85025; 93005; 93010; 94640; 96365; 96375; J1644; J1815; J1818; J2405; J7070

== ENCOUNTER 2016-05-24 12:23 | Outpatient (CLI) | payer MEDICARE ==
[2016-05-24 12:57] LABS: Basophils % (Auto) 0.7 % (0.0-1.8); Eosinophils % (Auto) 2.3 % (0.0-4.3); Hematocrit 34.2 % (30.3-42.9); Hemoglobin 10.7 gm/dl (10.1-14.3); Mean Corpuscular HGB Conc 31 % (30-34); Mean Corpuscular Hemoglobin 27 pg (28-32); Mean Corpuscular Volume 86 fl (79-97); Platelet Count 241 K/mm3 (140-440); Red Blood Count 3.98 M/mm3 (3.65-5.03); Red Cell Distribution Width 16.3 % (13.2-15.2); White Blood Count 7.3 K/mm3 (4.5-11.0)
[2016-05-24 13:11] LABS: Albumin 3.9 g/dL (3.9-5); BUN/Creatinine Ratio 11.56; Bilirubin,Total 0.2 mg/dL (0.1-1.2); Chloride 104.1 mmol/L (98-107); Potassium 5.7 mmol/L (3.6-5.0); Total Protein 7.7 g/dL (6.3-8.2)
== END 2016-05-24 12:24 | disposition home or self-care (01) ==
LOC: LAB 12:23
PROVIDERS: ATTEND Internal Medicine Nephrology
DX: I12.0 Hypertensive chronic kidney disease with stage 5 chronic kidney disease or end stage renal disease (principal); N18.5 Chronic kidney disease, stage 5; E11.22 Type 2 diabetes mellitus with diabetic chronic kidney disease; I67.89 Other cerebrovascular disease; I25.10 Atherosclerotic heart disease of native coronary artery without angina pectoris; E87.5 Hyperkalemia
CPT/HCPCS: 36415; 80053; 85025

== ENCOUNTER 2016-08-11 09:31 | Day surgery (SDC) | payer MEDICARE ==
--- NOTE | 2016-08-11 08:15 | Admit Criteria Form ---
Admission Criteria Documentation: AMBULATORY SURGERY EXCEPTION CRITERIA Ambulatory Surgery Exception Criteria ( Place 'X' for any and all applicable criteria): Surgery or procedure performed on ambulatory basis may require inpatient stay for[A] ANY ONE of the following(1)(2)(3)(4)(5)(6)(7)(8)(9): [X] I. A preoperative situation, condition, or finding that warrants inpatient stay as indicated by ANY ONE of the following: [] a) Inpatient care needed because of severity of a disease or condition rather than the surgery (eg, severe cardiac or respiratory disease, severe infection) (15) (16 ) (17) (18) [] b) Emergent procedure (eg, angioplasty for acute ischemia)(19) [] c) Complex surgical approach or situation as indicated by ANY ONE of the following(3): [] i) Open approach needed instead of usual endoscopic, transcatheter, or other less invasive procedure [] ii) Difficult approach because of previous operation [] iii) Airway monitoring required after open neck procedures(20)(21) [] iv) Large mass requiring unusually extensive dissection [] v) Additional complicating feature requiring inpatient care (eg, drain management)(22(23): [X] d) Major surgery in a pt with high anesthetic risk as indicated by ANY ONE of the following (2)(3)(5)(7)(8): [X] i) ASA risk class III or higher (severe systemic disease impairing function) [D] [] ii) Advanced age (eg, older than 85 years)(14)(24) [] iii) Symptomatic heart failure(25) [] iv) Symptomatic asthma or COPD(8)(21) [] v) Morbid obesity with hemodynamic or respiratory problems(20)( 21)(26)(27) [] vi) Obstructive sleep apnea(20)(21) [] vii) Former premature infants who are younger than 60 weeks [] viii) High risk for severe postoperative abnormalities (eg, severe postoperative hypocalcemia after parathyroidectomy for severe hyperparathyroidism)(27)( 28) [] ix) Unstable angina(25) [] e) Drug-related risk requiring inpatient stay as indicated by ANY ONE of the following(5)(10)(14)(32)(33) [] i) Procedure requires discontinuing drugs or other therapy (eg , antiarrhythmic medication, antiseizure medication), which necessitates inpatient observation or treatment.(18)(31) [] ii) Major surgery and high risk drug use as indicated by ANY ONE of the following: [] 1) Active abuse of cocaine or similar drug [] 2) Monoamine oxidase inhibitor use [] 3) Other drug identified as posing risk [] f) Inadequate outpatient care situation as indicated by ANY ONE of the following(5)(10)(14)(32)(33) [] i) Patient lives remote from medical facility and procedure has urgent complication potential, and temporary nearby residence cannot be arranged [] ii) Patient will have postprocedure incapacitation and inadequate assistance at home, or alternative level of care cannot be arranged. [] iii) Patient will have long general anesthesia or procedure side effect resolution time, and competent person to stay with patient on first postoperative night at home or alternative level of care cannot be arranged. []iv) Other inadequate outpatient situation that cannot be handled by other means [] II. A perioperative event, condition, or finding that warrants inpatient stay as indicated by ANY ONE of the following (1)(2)(3): [] a) Inadequate physiologic recovery: cardiovascular, respiratory, or hemodynamic status not normal or near preoperative baseline(18) [] b) Hemodynamic instability [] c) Patient not alert with near normal or baseline mental status [] d) Temperature not normal or as expected and not appropriate for outpatient treatment of condition [] e) Ambulatory or appropriate activity level status not yet achieved post procedure [E](34)(35)(36) [] f) Operative site not appropriate (eg, unexpected or excessive drainage or bleeding) [] g) Postoperative effects not resolved or adequately managed (eg, significant pain or vomiting not appropriate for outpatient or next level of care)(10)(12) [] h) Complicating features requiring inpatient care as indicated by ANY ONE of the following(37): [] i) Severe complications of procedure (eg, bowel injury, airway compromise, vascular injury,severe hemorrhage) [] ii) Extensive (eg, dissection far beyond usual scope of procedure ) or prolonged (eg, 120 minutes beyond usual) surgery needed requiring inpatient postoperative care [] iii) Conversion to an open or complex procedure that requires inpatient care (eg, open vs laparoscopic cholecystectomy, abdominal vs vaginal hysterectomy)(38) [] iv) Comorbid condition or test result identified during or post procedure that requires inpatient care (7) [] v) Malignant hyperthermia(30) [] vi) Other complicating feature requiring inpatient care(22)(23) Inpatient stay may be needed until ALL of the following are present (1)(2)(3)(4) (5)(6)(10)(14)(33)(40): []a) Physiologic recovery: cardiovascular, respiratory, and hemodynamic status normal or near preoperative baseline []b) Hemodynamic stability []c) Patient alert, with near normal or baseline mental status []d) Temperature appropriate: patient afebrile or temperature appropriate for outpt treatment of condition []e) Activity level appropriate: ambulatory or appropriate activity level post procedure []f) Operative site appropriate as indicated by ALL of the following: []i) Site dry or with expected drainage []ii) Any blood noted is as expected for procedure. []g) Postoperative effects resolved or managed as indicated by ALL of the following: []i) Pain management appropriate for outpatient (or next level of) care(10) []ii) Minimal nausea and vomiting: if present, successfully treated with oral medication(12) []iii) Headache, dizziness, or drowsiness (if present) are mild. []h) Voiding status acceptable as indicated by ANY ONE of the following: []i) Voiding spontaneously []ii) No voiding but instructions given for follow-up in 6 to 8 hours []iii) Urinary catheter in place, and instructions given for follow-up []i) Complicating features requiring inpatient care manageable at a lower level of care(37) []j) Comorbid conditions manageable at a lower level of care(37) The original [employer] content created by [employer] has been revised. The portions of the content which have been revised are identified through the use of italic text or in bold, and [email or web address] has neither reviewed nor approved the modified material. All other unmodified content is copyright [employer]. Please see references footnoted in the original [employer] edition 2016
[~2016-08-11 09:31] MED LIST: ANCEF/STERILE WATER 2 GM/20 ML 2 GM/20 ML SYRINGE IV NR; DILAUDID ONE; DIPRIVAN 10 MG/ML IV ONE; NACL 0.9% 1000 ML 1,000 ML IV SCH
[2016-08-11] MEDS ORDERED: XYLOCAINE MPF 2% ONE (10:00)
[2016-08-11] MEDS ORDERED: MARCAINE 0.5% INFILTRATI ONE ×2 (10:06→12:40)
[2016-08-11] MEDS ORDERED: HEPARIN 10,000 UNITS/10 ML ONE (10:06)
[2016-08-11] MEDS ORDERED: NACL 0.9% 500 ML 500 ML ONE (10:06)
--- NOTE | 2016-08-11 10:10 | Anesthesia Consultation ---
Anesthesia Consult and Med Hx Date of service: 08/11/16 - Airway Anesthetic Teeth Evaluation: Dentures, Edentulous ROM Head & Neck: Adequate Mental/Hyoid Distance: Adequate Mallampati Class: Class II Intubation Access Assessment: Probably Good - Pulmonary Exam CTA: Yes - Cardiac Exam Cardiac Exam: RRR - Pre-Operative Health Status ASA Pre-Surgery Classification: ASA4 Proposed Anesthetic Plan: General - Pulmonary Hx Smoking: No Hx Asthma: No Hx Sleep Apnea: No - Cardiovascular System Hx Hypertension: Yes (8YRS) Hx Coronary Artery Disease: Yes (CABG 2006) - Central Nervous System CVA: Yes (2007 X2, LEFT SIDED WEAKNESS) - Endocrine Hx Renal Disease: Yes (LAST DIALYSIS YESTERDAY, RIGHT PERMACATH) Hx End Stage Renal Disease: Yes Hx Liver Disease: No Hx Insulin Dependent Diabetes: Yes - Hematic Hx Anemia: Yes - Other Systems Hx Cancer: Yes (RECTAL CANCER)
--- NOTE | 2016-08-11 10:10 | Anesthesia Day of Surgery ---
Anesthesia Day of Surgery - Day of Surgery Patient Examined: Yes Patient H&P Reviewed: Yes Patient is NPO: Yes Beta Blockers: Yes
[2016-08-11] MEDS ORDERED: ZOFRAN IV PRN (10:11)
[2016-08-11] MEDS ORDERED: DILAUDID IV PRN (10:11)
[2016-08-11] MEDS ORDERED: PEPCID IV NR (11:00)
[2016-08-11 11:06] LABS: Hematocrit 31.6 % (30.3-42.9)
[2016-08-11] MEDS ORDERED: NEO SYNEPHRINE ONE (12:02)
[2016-08-11] MEDS ORDERED: NACL 0.9% 100 ML ONE (12:03)
[2016-08-11] MEDS ORDERED: ZOFRAN ONE (12:27)
[2016-08-11] MEDS ORDERED: HEPARIN 10,000 UNITS/10 ML IV ONE (12:39)
[2016-08-11] MEDS ORDERED: NACL 0.9% 500 ML IV ONE (12:40)
[2016-08-11] MEDS ORDERED: NACL 0.9% IR ONE (12:40)
--- NOTE | 2016-08-11 13:14 | Short Stay Summary ---
Short Stay Documentation Date of service: 08/11/16 Narrative H&P: See H&P - History H&P: obtained from office - Allergies and Medications Current Medications: Allergies No Known Allergies Allergy (Unverified 08/07/16 12:28) Home Medications Medication Instructions Recorded Confirmed Last Taken Type HYDROcodone/APAP 5-325 [[place] 1 each PO Q6HR PRN #60 tablet 05/18/16 08/07/16 Rx 5-325 mg TAB] Insulin Detemir [Levemir] 30 units SUB-Q QHS #300 units 05/18/16 08/07/16 Rx Sodium Bicarbonate 650 mg PO BID #60 tablet 05/18/16 08/07/16 08/10/16 Rx Amlodipine Besylate [Amlodipine 10 mg PO QDAY 08/10/16 08/10/16 08/11/16 07:30 History Besylate] Carvedilol [Carvedilol] 12.5 mg PO BID 08/10/16 08/10/16 08/11/16 07:30 History ISOSORBIDE MONOnitrate [Imdur ER] 30 mg PO DAILY 08/10/16 08/10/16 08/11/16 07: 30 History Active Medications Famotidine (Pepcid) 20 mg IV PREOP NR Stop: 08/11/16 23:59 Last Admin: 08/11/16 10:55 Dose: 20 mg Hydromorphone HCl (Dilaudid) 0.25 mg IV Q10MIN PRN PRN Reason: Pain, Moderate (4-6) Stop: 08/11/16 18:00 Cefazolin Sodium (Ancef/Sterile Water 2 Gm/20 Ml) 2 gm in 20 mls @ 80 mls/hr IV PREOP NR PRN Reason: Protocol Stop: 08/11/16 23:59 Sodium Chloride (Nacl 0.9% 1000 Ml) 1,000 mls @ 42 mls/hr IV DIRECT BASSEM Last Admin: 08/11/16 10:50 Dose: 42 mls/hr Ondansetron HCl (Zofran) 4 mg IV ONCE PRN PRN Reason: Nausea And Vomiting Stop: 08/11/16 18:00 - Brief post op/procedure progress note Date of procedure: 08/11/16 Pre-op diagnosis: End-Stage Renal Disease Post-op diagnosis: same Procedure: Creation of Left Brachial Artery to Axillary Vein AV Graft with 5 mm Bovine Graft Anesthesia: NORTH Surgeon: FELICE SWENSON Estimated blood loss: minimal Pathology: none - Disposition Condition at discharge: Good Disposition: DISCHARGED TO HOME OR SELFCARE Short Stay Discharge Plan Activity: other (no heavy lifting with left arm) Wound: open to air, keep clean and dry, other (okay to wash the wound with soap and water but do not soak in water) Follow up with: FELICE SWENSON MD [Staff Physician] - 14 Days Prescriptions: HYDROcodone/APAP 7.5-325 [[place] 7.5/325] 1 each PO Q6HR PRN #60 tablet PRN Reason: Pain
--- NOTE | 2016-08-11 13:15 | Operative Report ---
Operative Report Operative Report: Date of procedure: 08/11/2016 Pre-operative diagnosis: End-Stage Renal Disease Post-operative diagnosis: Same Procedure(s): 1. Creation of Left Brachial Artery to Axillary Vein AV Graft with 5 mm Bovine Graft Surgeon: Bear Comer MD Electrical Sign Servicer: None Anesthesia: General Endotracheal Anesthesia EBL: Minimal Counts: Correct Complications: None Condition: Stable Findings: Successful Creation of Left Arm AV Graft Specimen: None Indication: The patient is a 66-year-old female with end-stage renal disease in need of long -term access. She has small veins and is in need of AV graft. She and her son were given the risks, benefits, and alternative procedures and consented to procedure. Description of Procedure: The patient was brought to the operating room and laid in supine position after general endotracheal anesthesia was achieved the left arm was prepped and draped in normal sterile fashion. A longitudinal incision was made on the medial aspect of the arm just proximal to the antecubital crease and carried down to the brachial artery using sharp dissection. The brachial artery was dissected out circumferentially both proximally and distally and controlled with vessel loops. A second incision was created in longitudinal fashion on the medial aspect of the arm just distal to the axillary crease and carried down to the axillary vein using sharp dissection. Axillary vein was dissected out circumferentially and controlled with a vessel loop. I then used a Evelyn- Wick tunneler to tunnel from the brachial artery incision to the axillary vein incision and then put an 5 mm bovine through the tunnel. I infused with heparinized saline to ensure that it was not twisted or kinked. I put the brachial artery vessel loops on tension controlling the flow and then created an arteriotomy using an 11 blade and Covarrubias scissors. I beveled the graft and created an end-to-side anastomosis using 6-0 Prolene running fashion. I clamped the graft just proximal to the anastomosis and then released the vessel loops restoring flow in the brachial artery. I placed quick clot in incision to achieve hemostasis. I cut the proximal end of the graft to the appropriate length and beveled the graft in preparation for a venous anastomosis. I controlled the axillary vein a Satinsky clamp and created a venotomy using an 11 blade and Covarrubias scissors. I created an end to side anastomosis using a 6-0 Prolene in running fashion. Prior to completing the anastomosis I flushed the graft to ensure there was no thrombus and then completed the anastamosis. I released all clamps allowing flow into the AV graft which had an excellent thrill. I packed the wound with quick clot to achieve hemostasis. I anesthetized both wounds with Marcaine and then closed both wounds in 2 layers using 3-0 Vicryl in running fashion in the deep dermal layer and 4-0 Monocryl in running fashion the subcuticular layer. I dressed both wounds with Surgicel. The patient tolerated the procedure well all sponge needle and instrument counts were correct the patient was taken to recovery in stable condition.
[2016-08-11] MEDS ORDERED: RIFADIN ONE (13:26)
[2016-08-11] MEDS ORDERED: NACL 0.9% 50 ML ONE (13:26)
[2016-08-11] MEDS ORDERED: HEPARIN IV ONE (14:30)
[2016-08-11 15:23] VITALS: BP 133/53
== END 2016-08-11 15:06 | disposition home or self-care (01) ==
LOC: OR 09:31
PROVIDERS: ATTEND Surgery Vascular Surgery
DX: E11.22 Type 2 diabetes mellitus with diabetic chronic kidney disease (principal); I12.0 Hypertensive chronic kidney disease with stage 5 chronic kidney disease or end stage renal disease; N18.6 End stage renal disease; I25.10 Atherosclerotic heart disease of native coronary artery without angina pectoris; D64.9 Anemia, unspecified; Z95.1 Presence of aortocoronary bypass graft; Z86.73 Personal history of transient ischemic attack (TIA), and cerebral infarction without residual deficits; Z85.048 Personal history of other malignant neoplasm of rectum, rectosigmoid junction, and anus
CPT/HCPCS: 36415; 36830; 82962; 84132; 85014; 85018; C1768; J0690; J1170; J1644; J2370; J2405; J2704; J3490; J7030; J7040

== ENCOUNTER 2016-09-11 11:15 | Day surgery (SDC) | payer MEDICARE ==
[~2016-09-11 11:15] MED LIST changes: -DILAUDID ONE; -DIPRIVAN 10 MG/ML IV ONE
[2016-09-11] MEDS ORDERED: HEPARIN 10,000 UNITS/10 ML ONE (14:25)
[2016-09-11] MEDS ORDERED: HEPARIN/NS 5000 UNIT/500ML(CATH LAB) 1,000 ML IR ONE (14:25)
[2016-09-11] MEDS ORDERED: ANCEF/STERILE WATER 2 GM/20 ML 2 GM/20 ML SYRINGE IV ONE (14:26)
[2016-09-11] MEDS ORDERED: XYLOCAINE 2% INFILTRATI ONE (14:26)
[2016-09-11] MEDS ORDERED: NACL 0.9% 250ML 250 ML ONE (14:26)
[2016-09-11] MEDS: VERSED ONE ×5 (14:40→15:18)
[2016-09-11] MEDS: SUBLIMAZE ONE ×5 (14:40→15:18)
[2016-09-11] MEDS ORDERED: BENADRYL ONE (15:19)
[2016-09-11] MEDS ORDERED: NITROGLYCERIN SYRINGE 3 ML ONE (15:20)
--- NOTE | 2016-09-11 16:04 | Short Stay Summary ---
Short Stay Documentation Date of service: 09/11/16 - History Principal diagnosis: Malfunctioning fistula H&P: obtained from office - Allergies and Medications Current Medications: Allergies No Known Allergies Allergy (Unverified 08/07/16 12:28) Home Medications Medication Instructions Recorded Confirmed Last Taken Type Insulin Detemir [Levemir] 30 units SUB-Q QHS #300 units 05/18/16 09/11/16 Rx 15units Sodium Bicarbonate 650 mg PO BID #60 tablet 05/18/16 09/11/16 09/10/16 Rx 650mg Amlodipine Besylate 10 mg PO QDAY 08/10/16 09/11/16 09/10/16 History 10mg Carvedilol 12.5 mg PO BID 08/10/16 09/11/16 09/11/16 History 1205mg ISOSORBIDE MONOnitrate [Imdur ER] 30 mg PO DAILY 08/10/16 09/11/16 09/11/16 History 30mg HYDROcodone/APAP 7.5-325 [[place] 1 each PO Q6HR PRN #60 tablet 08/11/16 09/11/16 09/10/16 Rx 7.5/325] 1 tab Folic Acid/Vit Bcomp,C [Dialyvite 1 tab PO DAILY 09/11/16 09/11/16 09/10/16 History Tablet] 1 tab Gabapentin [Gabapentin] 100 mg PO DAILY 09/11/16 09/11/16 09/10/16 History 100mg LORazepam [LORazepam] 1 mg PO DAILY 09/11/16 09/11/16 09/10/16 History 1mg Mirtazapine [Mirtazapine] 15 mg PO DAILY 09/11/16 09/11/16 09/10/16 History 15mg Ropinirole HCl [rOPINIRole] 0.25 mg PO 09/11/16 09/10/16 History 0.25mg Active Medications Cefazolin Sodium (Ancef/Sterile Water 2 Gm/20 Ml) 2 gm in 20 mls @ 80 mls/hr IV PREOP NR PRN Reason: Protocol Stop: 09/11/16 23:00 Last Admin: 09/11/16 14:42 Dose: 20 mls Sodium Chloride (Nacl 0.9% 1000 Ml) 1,000 mls @ 42 mls/hr IV DIRECT BASSEM - Brief post op/procedure progress note Date of procedure: 09/11/16 Pre-op diagnosis: Malfunctioning dialysis access Post-op diagnosis: same Procedure: LUE FGA and venoplasty Anesthesia: local Surgeon: YEFRI MCDONALD Estimated blood loss: minimal Pathology: none Condition: stable - Disposition Condition at discharge: Good Disposition: DISCHARGED TO HOME OR SELFCARE Short Stay Discharge Plan Activity: advance as tolerated Weight Bearing Status: Weight Bear as Tolerated Diet: regular Wound: keep clean and dry, per your surgeon's advice Follow up with: KRYSTIN GAVIN MD [Primary Care Provider] - 7 Days
--- NOTE | 2016-09-11 16:10 | Operative Report ---
Operative Report Operative Report: EXAM: LEFT UPPER EXTREMITY FISTULOGRAM, VENOPLASTY CLINICAL INDICATION: PATIENT WITH MALFUNCTIONING DIALYSIS ACCESS WITH COOL LEFT HAND AND DECREASED STRENGTH DATE: 09/11/2016 PROCEDURE: Following an explanation of the risks, benefits and alternatives; written informed consent was obtained. The patient was brought to the angiographic suite and placed in supine position on the examination table. The patient's left upper arm was prepped and draped in the usual sterile fashion. 1 % lidocaine was used for anesthesia. Under ultrasound guidance, the fistula was cannulated towards the arterial anastomosis using a 7 cm 21-gauge needle. A 0.018 guidewire was advanced distally under fluoroscopy. The needle was removed and a micro-sheath placed. The 0.018 guidewire was exchanged for a 0.035 guidewire and the micro-sheath exchanged for a 6 German vascular sheath. A 4 German vertebral catheter and 0.035 guidewire were then advanced through the sheath. Digital subtraction angiography was performed which demonstrates sluggish flow throughout the fistula. The catheter and guidewire were then used to cannulate the arterial anastomosis and advanced up the proximal brachial artery. Digital subtraction angiography demonstrates a 2 cm area of 90 % stenosis within the brachial artery just proximal to the arterial anastomosis. There is a 70% stenosis within the distal brachial artery just distal to the arterial anastomosis. The graft is patent. Angioplasty of the proximal and distal stenoses were performed with a 4 mm x 40 mm balloon insufflated to 9 arina for 2 minutes. The catheter was again advanced through the arterial anastomosis. There is brisk flow through the fistula with only minimal flow down the forearm. The catheter was then redirected over the guidewire into the distal brachial artery proximal to the bifurcation. Contrast was injected through the catheter which demonstrated opacification of the ulnar artery and intraosseous artery. There appears to be abrupt truncation of the radial artery. Retrograde arterial flow is is present to some degree. The patient's complaint of left arm pain resolved at this point however. At this point, the catheters, guidewires and sheaths were removed and hemostasis achieved using 3-0 Vicryl suture and Dermabond. Sterile dressing was then applied. The patient tolerated the procedure well. There were no immediate post procedure complications. Conscious sedation was performed under the guidance of radiologic nursing. Continuous cardiopulmonary monitoring was utilized. IMPRESSION: 1) Left upper extremity fistulogram demonstrating 90% stenosis within the brachial artery proximal to the graft anastomosis and 70% stenosis just distal to the graft anastomosis. 2) Angioplasty of both stenoses with residual less than 10% stenosis. Post angioplasty imaging demonstrated some degree of steal. The patient's hand pain however has resolved.
[2016-09-11] MEDS ORDERED: FLUSH HEPARIN IV ONE (16:53)
[2016-09-11 16:59] VITALS: BP 136/32
--- NOTE | 2016-09-12 13:24 | Vascular Lab Report ---
MISCELLANEOUS VESSEL IDENTIFICATION: The arteriovenous access was identified in the left upper extremity and under real-time ultrasound guidance was cannulated. IMPRESSION: Successful ultrasound guided cannulation of the arteriovenous access site.
== END 2016-09-11 17:15 | disposition home or self-care (01) ==
LOC: OPU 11:15
PROVIDERS: ATTEND Surgery Vascular Surgery
DX: T82.590A Other mechanical complication of surgically created arteriovenous fistula, initial encounter (principal); I12.0 Hypertensive chronic kidney disease with stage 5 chronic kidney disease or end stage renal disease; N18.6 End stage renal disease; D64.9 Anemia, unspecified; Z99.2 Dependence on renal dialysis; Z79.899 Other long term (current) drug therapy; Z79.4 Long term (current) use of insulin; Z95.1 Presence of aortocoronary bypass graft; Z98.890 Other specified postprocedural states; Z83.3 Family history of diabetes mellitus; Z82.49 Family history of ischemic heart disease and other diseases of the circulatory system; Y83.2 Surgical operation with anastomosis, bypass or graft as the cause of abnormal reaction of the patient, or of later complication, without mention of misadventure at the time of the procedure
CPT/HCPCS: 36415; 36902; 76937; 82962; 84132; C1725; C1751; C1769; C1894; J0690; J1200; J1644; J2250; J3010; J7050; Q9967

== ENCOUNTER 2017-02-06 13:35 | Day surgery (SDC) | payer MEDICARE ==
[2017-02-06] MEDS ORDERED: DILAUDID ONE (13:38)
[2017-02-06] MEDS ORDERED: DIPRIVAN 10 MG/ML IV ONE (13:38)
[2017-02-06] MEDS ORDERED: HEPARIN 10,000 UNITS/10 ML ONE (13:55)
[2017-02-06] MEDS ORDERED: MARCAINE 0.5% 30 ML INFILTRATI ONE (13:55)
[2017-02-06] MEDS ORDERED: NACL 0.9% 250ML 250 ML ONE (13:55)
[2017-02-06] MEDS ORDERED: RIFADIN ONE (13:55)
[2017-02-06] MEDS ORDERED: NACL 0.9% 500 ML 500 ML ONE (13:56)
[2017-02-06] MEDS ORDERED: NEO SYNEPHRINE/NS Syringe(OR USE) IV ONE (14:00)
[2017-02-06] MEDS ORDERED: CATHFLO ONE (14:08)
[2017-02-06] MEDS ORDERED: ANCEF/STERILE WATER 2 GM/20 ML 2 GM/20 ML SYRINGE IV NR (14:10)
[2017-02-06] MEDS ORDERED: XYLOCAINE 1% 20 mL ONE (14:19)
[2017-02-06] MEDS ORDERED: NACL 0.9% 1000 ML 1,000 ML ONE (14:25)
--- NOTE | 2017-02-06 14:41 | Anesthesia Day of Surgery ---
Anesthesia Day of Surgery - Day of Surgery Patient Examined: Yes Patient H&P Reviewed: Yes Patient is NPO: Yes Beta Blockers: Yes
--- NOTE | 2017-02-06 14:45 | Anesthesia Consultation ---
Anesthesia Consult and Med Hx Date of service: 02/06/17 - Airway Anesthetic Teeth Evaluation: Dentures (top and bottom) ROM Head & Neck: Adequate Mental/Hyoid Distance: Adequate Mallampati Class: Class II Intubation Access Assessment: Probably Good - Pulmonary Exam CTA: Yes - Cardiac Exam Cardiac Exam: RRR - Pre-Operative Health Status ASA Pre-Surgery Classification: ASA4 Proposed Anesthetic Plan: General - Pulmonary Hx Smoking: No Hx Asthma: No Hx Sleep Apnea: No - Cardiovascular System Hx Hypertension: Yes (8YRS) Hx Coronary Artery Disease: Yes (CABG 2006) - Central Nervous System CVA: Yes (2007 X2, LEFT SIDED WEAKNESS, memory loss) - Endocrine Hx Renal Disease: Yes (LAST DIALYSIS SUNDAY, RIGHT PERMACATH) Hx End Stage Renal Disease: Yes Hx Liver Disease: No Hx Insulin Dependent Diabetes: Yes - Hematic Hx Anemia: Yes - Other Systems Hx Cancer: Yes (RECTAL CANCER) Hx Obesity: No
[2017-02-06] MEDS ORDERED: PEPCID IV NR ×2 (14:49→15:00)
[2017-02-06] MEDS ORDERED: DILAUDID IV PRN (14:50)
[2017-02-06] MEDS ORDERED: PERCOCET 5/325 PO PRN (14:50)
[2017-02-06] MEDS ORDERED: ZOFRAN IV PRN (14:50)
[2017-02-06] MEDS ORDERED: NACL 0.9% 1000 ML 1,000 ML IV SCH (15:00)
[2017-02-06] MEDS ORDERED: AMIDATE IV ONE (15:42)
[2017-02-06] MEDS ORDERED: XYLOCAINE MPF 2% ONE (15:42)
[2017-02-06] MEDS ORDERED: ePHEDrine SULFATE ONE ×2 (15:42→16:32)
[2017-02-06] MEDS ORDERED: MARCAINE 0.5% INFILTRATI ONE ×2 (16:19)
[2017-02-06] MEDS ORDERED: NACL 0.9% IR ONE (16:19)
[2017-02-06] MEDS ORDERED: HEPARIN 10,000 UNITS/10 ML 2,000 UNIT in NACL 0.9% 500 ML 500 ML IR ONE (16:21)
[2017-02-06] MEDS ORDERED: RIFADIN 600 MG in NACL 0.9% 50 ML IR ONE (16:21)
[2017-02-06] MEDS ORDERED: XYLOCAINE 1% 20 mL INFILTRATI ONE (16:49)
--- NOTE | 2017-02-06 16:59 | Short Stay Summary ---
Short Stay Documentation Date of service: 02/06/17 Narrative H&P: See H&P - History H&P: obtained from office - Allergies and Medications Current Medications: Allergies No Known Allergies Allergy (Unverified 08/07/16 12:28) Home Medications Medication Instructions Recorded Confirmed Last Taken Type Insulin Detemir [Levemir] 30 units SUB-Q QHS #300 units 05/18/16 02/06/17 Rx Sodium Bicarbonate 650 mg PO BID #60 tablet 05/18/16 02/06/17 02/05/17 Rx Amlodipine Besylate 10 mg PO QDAY 08/10/16 02/06/17 02/05/17 History Carvedilol 12.5 mg PO BID 08/10/16 02/06/17 02/06/17 06:00 History ISOSORBIDE MONOnitrate [Imdur ER] 30 mg PO DAILY 08/10/16 02/06/17 02/06/17 06: 00 History Folic Acid/Vit B Complex and C 1 tab PO DAILY 09/11/16 02/06/17 02/05/17 History [Dialyvite Tablet] Gabapentin [Gabapentin] 100 mg PO DAILY 09/11/16 02/06/17 02/05/17 History Mirtazapine [Mirtazapine] 15 mg PO DAILY 09/11/16 02/06/17 02/05/17 History Ropinirole HCl [rOPINIRole] 0.25 mg PO QDAY 09/11/16 02/06/17 02/05/17 History Insulin Regular, Human [Humulin R] 15 unit SUB-Q QAM 02/06/17 02/06/17 02/05/17 History clonazePAM [clonazePAM] 1 tab PO DAILY 02/06/17 02/06/17 02/05/17 History Active Medications Famotidine (Pepcid) 20 mg IV PREOP NR Stop: 02/06/17 23:59 Last Admin: 02/06/17 14:56 Dose: 20 mg Famotidine (Pepcid) 20 mg IV PREOP NR Stop: 02/06/17 23:59 Hydromorphone HCl (Dilaudid) 0.25 mg IV Q10MIN PRN PRN Reason: Pain, Moderate (4-6) Stop: 02/06/17 22:00 Cefazolin Sodium (Ancef/Sterile Water 2 Gm/20 Ml) 2 gm in 20 mls @ 80 mls/hr IV PREOP NR PRN Reason: Protocol Stop: 02/06/17 23:59 Sodium Chloride (Nacl 0.9% 1000 Ml) 1,000 mls @ 75 mls/hr IV DIRECT BASSEM Ondansetron HCl (Zofran) 4 mg IV ONCE PRN PRN Reason: Nausea And Vomiting Stop: 02/06/17 22:00 Oxycodone/Acetaminophen (Percocet 5/325) 1 tab PO ONCE PRN PRN Reason: Pain, Moderate (4-6) Stop: 02/06/17 22:00 - Brief post op/procedure progress note Date of procedure: 02/06/17 Pre-op diagnosis: Complications of Dialysis Access Post-op diagnosis: same Procedure: 1. Open Left Brachial Artery Thrombectomy with 3 Chantel 2. Creation of Left Brachial Artery to Axillary Vein Hybrid Graft with 6 mm Accuseal and 8 x 10 cm Viabahn Stent Graft Anesthesia: GETA Surgeon: FELICE SWENSON Estimated blood loss: other (250 ml) Pathology: none Condition: stable - Disposition Condition at discharge: Good Disposition: DC-01 TO HOME OR SELFCARE Short Stay Discharge Plan Activity: other (No heavy lifting with left arm) Wound: open to air, keep clean and dry, other (okay to wash the wound with soap and water but do not soak in water) Follow up with: FELICE SWENSON MD [Staff Physician] - 14 Days Prescriptions: HYDROcodone/APAP 7.5-325 [[place] 7.5/325] 1 each PO Q6HR PRN #60 tablet PRN Reason: Pain
[2017-02-06 17:04] LABS: ISTAT K 4.8 (3.5-4.9)
--- NOTE | 2017-02-06 17:10 | Operative Report ---
Operative Report Operative Report: Date of procedure: 02/06/2017 Pre-operative diagnosis: Complications of Dialysis Access Post-operative diagnosis: Same Procedure(s): 1. Open Left Brachial Artery Thrombectomy with 3 Chantel 2. Creation of Left Brachial Artery to Axillary Vein Hybrid Graft with 6 mm Accuseal and 8 x 10 cm Viabahn Stent Graft Surgeon: Bear Comer MD Bench Shear Operator: None Anesthesia: General Endotracheal Anesthesia EBL: 250 ml Counts: Correct Complications: None Condition: Stable Findings: Successful Creation of Left Arm AV Graft Specimen: None Indication: The patient is a 66-year-old female with history of end-stage renal disease who recently presented to office with a thrombosed AV graft. She was unable to have flow successfully restored she is in need of additional access. She was given the risks, benefits, and alternative procedures and consented to procedure. Description of Procedure: The patient was brought to the operating room and laid in supine position after general endotracheal anesthesia was achieved the left arm was prepped and draped in normal sterile fashion. A longitudinal incision was made on the medial aspect of the arm just proximal to the antecubital crease and carried down to the brachial artery using sharp dissection. The brachial artery was dissected out circumferentially both proximally and distally and controlled with vessel loops. A second incision was created in longitudinal fashion on the medial aspect of the arm just distal to the axillary crease and carried down to the axillary vein using sharp dissection. Axillary vein was dissected out circumferentially and controlled with a vessel loop. I then used a Evelyn- Wick tunneler to tunnel from the brachial artery incision to the axillary vein incision and then put an 6 mm Accuseal Graft through the tunnel. I infused with heparinized saline to ensure that it was not twisted or kinked. I then used a micropuncture needle to access the axillary vein and advanced the wire into the central venous system under fluoroscopy. I placed the micropuncture sheath by Seldinger technique and then advanced a 0.018 V18 wire into the central venous system under fluoroscopy. I placed a 7 Tajik sheath over the V18 and performed a fistulogram to evaluate the anatomy. Once anatomy was identified and removed the 7 Tajik sheath and pulled the end of the V18 wire through the graft. I advanced the 8 x 10 cm Viabahn Stent Graft over the wire and positioned it was approximately 5 cm of the stent graft within the vein and the distal 5 cm of the stent graft within the Accuseal graft creating a hybrid graft. I removed the V18 wire and advanced a 0.035 J-wire through the graft and into the central venous system and then postdilated the stent graft using an 8 x 40 balloon. I used a single 5-0 Prolene in interrupted fashion to secure the stent graft to the vein and a single 5-0 Prolene in interrupted fashion to secure the stent graft to the Accuseal Graft. I injected contrast in the distal graft which confirmed patency of the graft as well as the stent graft. I put the brachial artery vessel loops on tension controlling the flow and then created an arteriotomy using an 11 blade and Covarrubias scissors. I loosened the distal vessel loop and there was excellent retrograde bleeding however upon removing the proximal vessel loop on the brachial artery was no blood flow. I passed a 3 Chantel proximally and removed clot at which point there was excellent antegrade flow. I made an additional pass to ensure that all thrombus had been retrieved. On the systemically heparinized the patient and cut the distal portion of the graft to length. I beveled the graft and created an end-to-side anastomosis using 6-0 Prolene in running fashion. I released all clamps allowing flow into the AV graft which had a weak but palpable thrill. I packed the wounds with quick clot to achieve hemostasis. Once hemostasis was achieved I anesthetized both wounds with Marcaine and then closed both wounds in 2 layers using 3-0 Vicryl in running fashion in the deep dermal layer and 4-0 Monocryl in running fashion the subcuticular layer. I dressed both wounds with Surgicel. The patient tolerated the procedure well all sponge needle and instrument counts were correct the patient was taken to recovery in stable condition.
--- NOTE | 2017-02-06 18:17 | Post Anesthesia Evaluation ---
- Post Anesthesia Evaluation Patient Participated: Yes Airway Patent: Yes Stable Respiratory Function: Yes Temp > 96.8F: Yes Pain Manageable: Yes Adequeate Hydration: Yes Anesthesia Complications: No
[2017-02-06 18:28] VITALS: BP 159/66
== END 2017-02-06 19:15 | disposition home or self-care (01) ==
LOC: OR 13:35
PROVIDERS: ATTEND Surgery Vascular Surgery
DX: T82.868A Thrombosis due to vascular prosthetic devices, implants and grafts, initial encounter (principal); I12.0 Hypertensive chronic kidney disease with stage 5 chronic kidney disease or end stage renal disease; E11.22 Type 2 diabetes mellitus with diabetic chronic kidney disease; N18.6 End stage renal disease; I25.10 Atherosclerotic heart disease of native coronary artery without angina pectoris; I69.354 Hemiplegia and hemiparesis following cerebral infarction affecting left non-dominant side; I69.311 Memory deficit following cerebral infarction; Z95.1 Presence of aortocoronary bypass graft; Z79.4 Long term (current) use of insulin; Z85.048 Personal history of other malignant neoplasm of rectum, rectosigmoid junction, and anus; Y83.2 Surgical operation with anastomosis, bypass or graft as the cause of abnormal reaction of the patient, or of later complication, without mention of misadventure at the time of the procedure
CPT/HCPCS: 36830; 36831; 82803; 82962; C1725; C1757; C1768; C1769; C1874; C1894; J0690; J1170; J1644; J2370; J2405; J2704; J3490; J7030; J7040; J7050; Q9966; J2997